=== PATIENT | male | born 1945 | race Caucasian/White ===

== ENCOUNTER → 2021-06-13 | Day surgery (SDC) | payer OTHER ==
[~2021-06-13] MED LIST: ALDACTONE25 MG PO; ALL DAY ALLERGY10 M2 PO; LEVEMIR100 UNIT/1 SQ; LOPRESSOR 50 MG50 MG PO; METFORMIN HCL1000 M1 PO; NEURONTIN600 MG PO; NOVOLOG 10100 UNITS/ INJ; PRAVASTATIN SOD80 MG PO; SYMBICORT 160-1 INHA INH; VAZALORE81 MG PO
== END | disposition home or self-care (01) ==
LOC: OR 06:07
DX: Z12.11 Encounter for screening for malignant neoplasm of colon (principal); K57.30 Diverticulosis of large intestine without perforation or abscess without bleeding; K64.1 Second degree hemorrhoids; I25.2 Old myocardial infarction; I10 Essential (primary) hypertension; J44.9 Chronic obstructive pulmonary disease, unspecified; E11.9 Type 2 diabetes mellitus without complications; F17.200 Nicotine dependence, unspecified, uncomplicated; E66.9 Obesity, unspecified; E78.00 Pure hypercholesterolemia, unspecified; Z68.30 Body mass index [BMI] 30.0-30.9, adult; Z95.1 Presence of aortocoronary bypass graft; Z79.82 Long term (current) use of aspirin; Z79.4 Long term (current) use of insulin; Z79.899 Other long term (current) drug therapy; Z80.1 Family history of malignant neoplasm of trachea, bronchus and lung
CPT/HCPCS: 82962; J2704; J7040

== ENCOUNTER 2021-06-17 16:00 | Emergency (ER) | payer OTHER ==
[~2021-06-17] VITALS: Ht 172.7 cm; Wt 86.2 kg
[2021-06-17 18:09] LABS: HEMOGLOBIN 14.4 gm/dl (14.0-17.5); RED BLOOD COUNT 4.78 M/UL (4.20-5.50); WHITE BLOOD COUNT 7.4 K/UL (4.5-11.0)
[2021-06-17 18:31] LABS: BUN/CREATININE RATIO 25 (0-10)
== END 2021-06-17 21:49 | disposition home or self-care (01) ==
LOC: ER1 16:00
PROVIDERS: Emergency Medicine
DX: U07.1 COVID-19 (principal); Z23 Encounter for immunization; I25.10 Atherosclerotic heart disease of native coronary artery without angina pectoris; E11.9 Type 2 diabetes mellitus without complications; Z79.4 Long term (current) use of insulin; Z95.1 Presence of aortocoronary bypass graft
CPT/HCPCS: 36600; 71045; 80048; 82550; 82553; 82803; 83874; 84484; 85025; 93005; 99284; M0245